=== PATIENT | female | born 1930 | race Caucasian/White ===

== ENCOUNTER → 2016-12-10 | Day surgery (SDC) | payer MEDICARE, OTHER ==
[2016-12-10] VITALS (8 sets, daily range): BP systolic 97–126; BP diastolic 40–52; PULSE 60–65; RESP 14
[~2016-12-10] MED LIST: ROCURONIUM 50 MG INJ ONE
--- NOTE | 2016-12-11 11:11 | GILP ---
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 INFORMED CONSENT: The risk of the procedure, related and unrelated complications, anesthetic risks, alternatives discussed. Informed consent was obtained. DESCRIPTION OF PROCEDURE: The patient was brought to the GI lab, sedated by Dr. Chen. After optim um sedation, scope was passed with much ease into esophagus and advanced further down into stomach a nd the bumper tip was barely identified through the internal stoma in the stomach. Only 10% of the internal bumper was visible through the subcutaneous tissue of the abdominal wall, indicating that t he entire bumper was buried in the subcutaneous tissue. Under endoscopic guidance, the entire bumpe r was removed and through the same gastrocutaneous fistula, a guidewire was passed. Once it emerged into the stomach. It was snared with transendoscopically passed snare and the whole procedure was completed by modified Ponsky technique. The patient was rescoped. The position of the internal bum per confirmed. External bumper secured. There was no bleeding or immediate complications. She hillary erated the procedure very well. IMPRESSION: 1. Successful removal of the G-tube from the subcutaneous tissue where it was buried. 2. Placement of new G-tube through the same gastrocutaneous fistula. PLAN: Resume feeding through the G-tube, have the abdominal binder and the staff has been educated ____ persisted the patient is turned around or getting transferred for any radiological procedure , or to other facility. The G-tube will come out if it is not properly anchored or if there is no a bdominal binder. Dictated By: STEPHIE PEÑA/NTS Conf#: [id number] DID#: [id number] CC: STEPHIE GOEL MD; JOEY BROOKS MD;*EndCC*
== END | disposition home or self-care (01) ==
LOC: SDS 16:45
PROVIDERS: ATTEND Internal Medicine Gastroenterology
DX: Z43.1 Encounter for attention to gastrostomy (principal); J96.00 Acute respiratory failure, unspecified whether with hypoxia or hypercapnia; Z99.81 Dependence on supplemental oxygen; I25.10 Atherosclerotic heart disease of native coronary artery without angina pectoris; I48.91 Unspecified atrial fibrillation; I50.33 Acute on chronic diastolic (congestive) heart failure; Z85.118 Personal history of other malignant neoplasm of bronchus and lung
CPT/HCPCS: 94002